=== PATIENT | female | born 1970 | race Two or more races ===

== ENCOUNTER 2023-03-05 02:35 | Emergency (ER) | payer OTHER ==
[~2023-03-05] VITALS: Ht 157.5 cm; Wt 86.2 kg
[2023-03-05] MEDS ORDERED: SERTRALINE HCL25 MG PO (02:40)
[2023-03-05] MEDS ORDERED: MECLIZINE HCL25 MG PO (05:58)
== END 2023-03-05 06:04 ==
LOC: ER 02:35
DX: R42 Dizziness and giddiness (principal)

== ENCOUNTER 2024-06-04 06:04 | Day surgery (SDC) | payer OTHER ==
[2024-05-29 08:48] LABS: PH,URINE 5.5 (5.0-8.0); URINE APPEARANCE Clear; URINE BILIRRUBIN Negative (NEGATIVE); URINE BLOOD Negative; URINE COLOR Yellow; URINE GLUCOSE Negative (NEGATIVE); URINE KETONE Negative (NEGATIVE); URINE LEUKOCYTE Negative; URINE NITRATE Negative; URINE PROTEIN Negative (NEGATIVE); URINE UROBILINOGEN 0.2 E.U./dl
[2024-05-29 08:49] LABS: HEMATOCRIT 37.8 % (36.0-45.00); HEMOGLOBIN 12.8 g/dL (12.0-15.00); MEAN CELL VOLUME 91.5 fL (80.00-100.00); MEAN CORPUSCULAR HEMOGLOBIN 31.1 pg (27.00-32.0); PLATELET COUNT 314 K/uL (150-450); RED BLOOD COUNT 4.13 M/uL (4.00-6.00)
[2024-05-29 08:50] LABS: URINE BACTERIA 269.6 uL (0.0-1933); URINE EPITHELIAL CELLS 18.8 uL (0.0-38.8); URINE WBC 3.5 uL (0.0-23.2)
[2024-05-29 09:18] LABS: INR 1.01
[2024-05-29 09:42] LABS: CALCIUM 9.4 mg/dL (8.5-10.1); CREATININE SERUM 0.72 mg/dL (0.55-1.02); GFR 85.06; POTASSIUM 4.58 mEq/L (3.5-5.1)
[~2024-06-04 06:04] MED LIST: BUPROPION XL450 MG; MECLIZINE HCL25 MG PO; SERTRALINE HCL25 MG PO; TRAZODONE HCL50 MG PO
[2024-06-04] MEDS ORDERED: CEFAZOLIN SODIUM 1,000 MG VIAL ONE (07:47)
== END 2024-06-04 10:25 | disposition home or self-care (01) ==
LOC: CIR.AMB 06:04
PROVIDERS: ATTEND Surgery Surgery of the Hand
DX: M67.843 Other specified disorders of tendon, right hand (principal); Z88.5 Allergy status to narcotic agent